=== PATIENT | female | born 1995 | race Hispanic/Latino ===

== ENCOUNTER 2019-02-10 19:01 | Emergency (ER) | payer SELFPAY ==
--- OUTSIDE RECORDS SUMMARY | 2019-02-10 19:03 | XMS REPORT ---
:1995 [facility] Address [address] [place] [address] Dr. Rush [address] [place] [address] Care Team Providers Name Role Phone Unavailable Unavailable Unavailable Problems This patient has no known problems. Allergies, Adverse Reactions, Alerts This patient has no known allergies or adverse reactions. Medications This patient has no known medications.
--- OUTSIDE RECORDS SUMMARY | 2019-02-10 19:04 | XMS REPORT | Summary of Care ---
:1995 Author Organization [facility] Address [address] [place] [address] Care Team Providers Name Role Phone Marlena Finch [facility] Primary Care Provider Reason for Visit Reason Comments Other refill on acyclovir 400mg last filled 10/08/18 Encounter Details Date Type Department Care Team Description 11/07/2018 Telephone [facility]- Marlena Finch Other (refill on Denis Kidd [facility] acyclovir 400mg last [address] filled 10/08/18) [facility] [address] [place], [place] [id number] Allergies Active Allergy Reactions Severity Noted Date Comments Latex Rash Medium 04/02/2018 documented as of this encounter (statuses as of 11/07/2018) Medications Medication Sig Dispensed Refills Start Date End Date Status ondansetron 4 mg Take 1 tablet by 20 tablet 0 05/11/2017 Active disintegrating tablet mouth every 4 (four) hours as needed for Nausea and Vomiting (N/V). HYDROcodone-acetaminoph Take 1 tablet by 20 tablet 0 05/14/2017 Active en 5-325 mg tablet mouth every 6 (six) hours as needed for Pain (scale 4-6) or Pain (scale 7-10). hydrOXYzine 25 mg Take 1 tablet by 28 tablet 0 03/18/2018 Active tablet mouth every 6 (six) hours. predniSONE 10 mg tablet 40 mg daily , 50 tablet 0 03/18/2018 Active days 1-5, 30 mg daily, days 6-10, 20 mg daily , days 11-15, 10 mg daily, days 16-20 acyclovir 400 mg tablet Take 400 mg by 0 Active mouth. acyclovir 400 mg Take 1 tablet by 15 tablet 0 11/07/2018 Active tabletIndications: mouth 3 (three) Herpes, vulvar times daily. documented as of this encounter (statuses as of 11/07/2018) Active Problems Problem Noted Date Well woman exam 04/02/2018 Contraceptive management 04/02/2018 Pilonidal cyst 05/14/2017 Obesity (BMI 30-39.9) 10/08/2016 Herpes 09/13/2016 documented as of this encounter (statuses as of 11/07/2018) Resolved Problems Problem Noted Date Resolved Date Vaginal bleeding in 10/08/2016 02/07/2017 Rubella non-immune status, antepartum 09/15/2016 02/07/2017 Abnormal maternal glucose tolerance, antepartum 09/14/2016 02/07/2017 Overview: passed 3hr glucose Supervision of high risk , antepartum 09/13/2016 02/07/2017 Well woman exam (no gynecological exam) 07/27/2016 09/13/2016 Encounter for other contraceptive management 07/27/2016 09/13/2016 Family planning counseling 07/27/2016 09/13/2016 Obesity affecting 07/27/2016 02/07/2017 Gonococcal infection (acute) of lower genitourinary tract 08/06/20152016 General counseling and advice for contraceptive management 11/11/20142016 Overview: ICD10 Diagnosis Term Digital Tech Utility Encounter for routine gynecological examination 11/11/2014 07/27/2016 Overview: ICD10 Diagnosis Term Digital Tech Utility Screen for STD (sexually transmitted disease) 11/11/2014 09/13/2016 Yeast infection of the vagina 11/11/2014 07/27/2016 Overweight 11/11/2014 07/27/2016 Overview: ICD10 Diagnosis Term Digital Tech Utility documented as of this encounter (statuses as of 11/07/2018) Immunizations Name Administration Dates Next Due Td 03/12/2007 documented as of this encounter Social History Tobacco Use Types Packs/Day Years Used Date Former Smoker Cigars Quit: 09/2017 Smokeless Tobacco: Never Used Alcohol Use Drinks/Week oz/Week Comments Yes 0 Standard drinks or equivalent 0.0 socially Sex Assigned at Date Recorded Not on file Job Start Date Occupation Industry Not on file Not on file Not on file Travel History Travel Start Travel End No recent travel history available. documented as of this encounter Last Filed Vital Signs Not on filedocumented in this encounter Plan of Treatment Date Type Specialty Care Team Description 04/02/2019 Office Visit [facility] [address] [place] [address] [phone] Health Maintenance Due Date Last Done Comments HPV VACCINES (1 - Female 2008 3-dose series) DTaP,Tdap,and Td Vaccines (2 2012 03/12/2007 - Tdap) INFLUENZA VACCINE (#1) 2018 PAP SMEAR 04/02/2021 04/02/2018, 11/11/2014 PNEUMOCOCCAL 0-64 YEARS Aged Out No longer eligible based COMBINED SERIES on patient's age to complete this topic documented as of this encounter Results Not on filedocumented in this encounter Visit Diagnoses Diagnosis Herpes, vulvar Herpetic ulceration of vulva documented in this encounter Insurance Payer Benefit Plan Subscriber ID Effective Phone Address Type / Group Dates [facility] xxxxxxxxx 2017-Dariel [phone] [address] Medicaid WOMEN nt [address] [place] [address] documented as of this encounter Advance Directives Name Relationship Healthcare Agent Communication Relationship Lily Duenas Mother Primary healthcare agent
[2019-02-10 19:40] LABS: Absolute Lymphocytes (CBC) 3.9 K/uL (0.7-4.9); Basophils % 0.8 % (0-1.3); Hematocrit 34.6 % (36.0-45.0); Lymphocytes % 40.1 % (15.3-44.8)
--- NOTE | 2019-02-10 19:54 | RAD REPORT ---
EXAM DESCRIPTION: RAD - Chest Single View - 02/10/2019 7:41 pm CLINICAL HISTORY: CHEST PAIN Chest pain. COMPARISON: <Comparisons> FINDINGS: Portable technique limits examination quality. The lungs are grossly clear. The heart is normal in size. No displaced fractures. IMPRESSION: No acute intrathoracic process suspected.
[2019-02-10 19:57] LABS: ALT/SGPT 34 U/L (12-78); AST/SGOT 19 U/L (15-37); Albumin 3.6 g/dL (3.4-5.0); Alkaline Phosphatase 108 U/L (45-117); BUN Blood Urea Nitrogen 16 mg/dL (7-18); Bicarbonate 29 mmol/L (21-32); Bilirubin Direct < 0.1 mg/dL (0-0.2); Glucose Level 89 mg/dL (74-106); Magnesium 2.3 mg/dL (1.8-2.4); NT PRO-BNP 17 pg/mL (<125); Potassium 4.1 mmol/L (3.5-5.1); Sodium Level 141 mmol/L (136-145); Troponin (Emerg Dept Use Only) < 0.02 ng/mL (0.0-0.045)
[2019-02-10 20:01] LABS: Bilirubin Total < 0.1 mg/dL (0.2-1.0)
[2019-02-10] MEDS ORDERED: KETOROLAC 30 MG/ML INJ ONE (20:17)
[2019-02-10 20:29] LABS: Barbiturates NEGATIVE (NEGATIVE); Benzodiazepines NEGATIVE (NEGATIVE); Cocaine NEGATIVE (NEGATIVE); METHAMPHETAM NEGATIVE (NEGATIVE); Methadone NEGATIVE (NEGATIVE); Opiates NEGATIVE (NEGATIVE); Phencyclidine NEGATIVE (NEGATIVE); THC Cannibis NEGATIVE (NEGATIVE)
--- NOTE | 2019-02-10 20:47 | EDPHYS ---
Physician Documentation [facility] Name: Marcela Duenas Age: 23 yrs Sex: Female : 1995 Arrival Date: 02/10/2019 Time: 19:03 Bed 25 Private MD: ED Physician Jey Reeves HPI: 02/11 06:08 This 23 yrs old Female presents to ER via Ambulatory with complaints of Chest tw4 Pain. 06:08 The patient or guardian reports chest pain that is located primarily in the anterior tw4 chest wall. The pain does not radiate. 06:08 Associated signs and symptoms: The patient has no apparent associated signs or tw4 symptoms. The chest pain is described as dull. Duration: The patient or guardian reports a single episode. Modifying factors: The symptoms are alleviated by nothing. the symptoms are aggravated by nothing. The patient has not experienced similar symptoms in the past. 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 - Social history:: Smoking status: Patient/guardian denies using tobacco. - Ebola Screening: : No symptoms or risks identified at this time. ROS: 02/11 06:08 Constitutional: Negative for fever, chills, and weight loss, Eyes: Negative for injury, tw4 pain, redness, and discharge, Respiratory: Negative for shortness of breath, cough, wheezing, and pleuritic chest pain, Abdomen/GI: Negative for abdominal pain, nausea, vomiting, diarrhea, and constipation. MS/Extremity: Negative for injury and deformity, Skin: Negative for injury, rash, and discoloration, Neuro: Negative for headache, weakness, numbness, tingling, and seizure. Cardiovascular: Positive for chest pain, Negative for edema, orthopnea, palpitations. Exam: 06:09 Constitutional: This is a well developed, well nourished patient who is awake, alert, tw4 and in no acute distress. Head/Face: Normocephalic, atraumatic. 06:09 Cardiovascular: Regular rate and rhythm with a normal S1 and S2. No gallops, murmurs, or rubs. Normal PMI, no JVD. No pulse deficits. Respiratory: Lungs have equal breath sounds bilaterally, clear to auscultation and percussion. No rales, rhonchi or wheezes noted. No increased work of breathing, no retractions or nasal flaring. Abdomen/GI: Soft, non-tender, with normal bowel sounds. No distension or tympany. No guarding or rebound. No evidence of tenderness throughout. Back: No spinal tenderness. No costovertebral tenderness. Full range of motion. MS/ Extremity: Pulses equal, no cyanosis. Neurovascular intact. Full, normal range of motion. Neuro: Awake and alert, GCS 15, oriented to person, place, time, and situation. Cranial nerves II-XII grossly intact. Motor strength 5/5 in all extremities. Sensory grossly intact. Cerebellar exam normal. Normal gait. 06:09 Chest/axilla: Inspection: normal, Palpation: tenderness, that is mild, that totally reproduces the patient's complaints. Vital Signs: 02/10 19:09 BP 115 / 78; Pulse 83; Resp 16 S; Temp 98.5(TE); Pulse Ox 99% on R/A; Weight 81.65 kg aa5 (R); Height 5 ft. 0 in. (152.40 cm) (R); Pain 8/10; 20:29 BP 106 / 69; Pulse 88; Resp 18; Pulse Ox 100% on R/A; mg2 21:00 BP 110 / 67; Pulse 80; Resp 18; Temp 98; Pulse Ox 100% on R/A; mg2 19:09 Body Mass Index 35.15 (81.65 kg, 152.40 cm) aa5 MDM: 19:11 Patient medically screened. tw4 02/11 06:09 Data reviewed: vital signs, nurses notes, lab test result(s), cardiac enzymes, troponin tw4 i, CBC, white blood cell count, hemoglobin, hematocrit, platelets, electrolytes, sodium, potassium, chloride, serum bicarbonate, BUN, creatinine, serum glucose, hepatic panel. Data interpreted: Pulse oximetry: Interpretation: normal. Counseling: I had a detailed discussion with the patient and/or guardian regarding: the historical points, exam findings, and any diagnostic results supporting the discharge/admit diagnosis. Medication response: Medication response: Toradol relieved patient's pain. The symptoms have resolved. Response to treatment: the patient's symptoms have resolved after treatment, and as a result, I will discharge patient. Special discussion: I discussed with the patient/guardian in detail that at this point there is no indication for admission to the hospital. It is understood, however, that if the symptoms persist or worsen the patient needs to return immediately for re-evaluation. 02/10 19:14 Order name: Basic Metabolic Panel [facility] 02/10 19:14 Order name: CBC with Diff tw 02/10 19:14 Order name: LFT's [facility] 02/10 19:14 Order name: Magnesium tw 02/10 19:14 Order name: NT PRO-BNP [facility] 02/10 19:14 Order name: PT-INR [facility] 02/10 19:14 Order name: Troponin (emerg Dept Use Only) [facility] 02/10 19:14 Order name: XRAY Chest (1 view) [facility] 02/10 19:16 Order name: Urine Drug Screen; Complete Time: 20:42 [facility] 02/10 20:16 Order name: Urine Dipstick--Ancillary (enter results) [facility] 02/10 20:16 Order name: Urine --Ancillary (enter results) [facility] 02/10 20:17 Order name: Urine Dipstick-Ancillary [facility] 02/10 20:17 Order name: Urine --Ancillary [facility] 02/10 19:14 Order name: EKG; Complete Time: 19:16 tw 02/10 19:14 Order name: Cardiac monitoring; Complete Time: 19:33 4 02/10 19:14 Order name: EKG - Nurse/Tech; Complete Time: 19:33 tw4 02/10 19:14 Order name: IV Saline Lock; Complete Time: 19:33 tw4 02/10 19:14 Order name: Labs collected and sent; Complete Time: 19:33 tw4 02/10 19:14 Order name: O2 Per Protocol; Complete Time: 19:33 tw4 02/10 19:14 Order name: O2 Sat Monitoring; Complete Time: 19:33 tw4 Administered Medications: 02/10 20:29 Drug: TORadol 30 mg Route: IVP; Site: left antecubital; mg2 21:15 Follow up: Response: No adverse reaction mg2 Disposition: 02/10/19 20:46 Discharged to Home. Impression: Costochondritis. - Condition is Stable. - Discharge Instructions: Chest Wall Pain, [id number]. - Prescriptions for Ibuprofen 600 mg Oral Tablet - take 1 tablet by ORAL route every 6 hours As needed take with food; 30 tablet. - Medication Reconciliation Form, Thank You Letter, Antibiotic Education, Prescription Opioid Use, Work release form form. - Follow up: Private Physician; When: Upon discharge from the Emergency Department; Reason: Recheck today's complaints, Continuance of care. - Problem is new. - Symptoms have improved. Signatures: Dispatcher [employer] EDMartina Little, RN RN aa5 Jey Reeves MD MD tw4 Azael Newton RN RN mg2 Corrections: (The following items were deleted from the chart) 21:22 20:46 02/10/2019 20:46 Discharged to Home. Impression: Costochondritis. Condition is mg2 Stable. Forms are Medication Reconciliation Form, Thank You Letter, Antibiotic Education, Prescription Opioid Use. Follow up: Private Physician; When: Upon discharge from the Emergency Department; Reason: Recheck today's complaints, Continuance of care. Problem is new. Symptoms have improved. tw4
--- NOTE | 2019-02-10 20:47 | ER ---
Nurse's Notes [facility] Name: Marcela Duenas Age: 23 yrs Sex: Female : 1995 Arrival Date: 02/10/2019 Time: 19:03 Bed 25 Private MD: Diagnosis: Costochondritis Presentation: 02/10 19:07 Presenting complaint: Patient states: mid-sternal chest pain that began 4 days ago. Pt aa5 denies cough, denies SOB. Transition of care: patient was not received from another setting of care. Onset of symptoms was January 2019. Risk Assessment: Do you want to hurt yourself or someone else? Patient reports no desire to harm self or others. Initial Sepsis Screen: Does the patient meet any 2 criteria? No. Patient's initial sepsis screen is negative. Does the patient have a suspected source of infection? No. Patient's initial sepsis screen is negative. Care prior to arrival: None. 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 - Social history:: Smoking status: Patient/guardian denies using tobacco. - Ebola Screening: : No symptoms or risks identified at this time. Screenin:34 Abuse screen: Denies threats or abuse. Denies injuries from another. Nutritional mg2 screening: No deficits noted. Tuberculosis screening: No symptoms or risk factors identified. Fall Risk IV access (20 points). Assessment: 19:35 General: Appears in no apparent distress. comfortable, Behavior is calm, cooperative. mg2 Pain: Complains of pain in chest Pain does not radiate. Pain currently is 4 out of 10 on a pain scale. Quality of pain is described as aching, Pain began gradually, 2-3 days ago. Is intermittent. Neuro: Level of Consciousness is awake, alert, obeys commands, Oriented to person, place, time, situation. Cardiovascular: Reports chest pain, Capillary refill < 3 seconds Patient's skin is warm and dry. Respiratory: Airway is patent Respiratory effort is even, unlabored, Respiratory pattern is regular, symmetrical. GI: No signs and/or symptoms were reported involving the gastrointestinal system. : No signs and/or symptoms were reported regarding the genitourinary system. EENT: No signs and/or symptoms were reported regarding the EENT system. Derm: Skin is intact, is healthy with good turgor, Skin is pink, warm \T\ dry. normal. Musculoskeletal: Circulation, motion, and sensation intact. Capillary refill < 3 seconds. 21:15 Reassessment: Patient appears in no apparent distress at this time. Patient is alert, mg2 oriented x 3, equal unlabored respirations, skin warm/dry/pink. Patient states feeling better. Vital Signs: 19:09 BP 115 / 78; Pulse 83; Resp 16 S; Temp 98.5(TE); Pulse Ox 99% on R/A; Weight 81.65 kg aa5 (R); Height 5 ft. 0 in. (152.40 cm) (R); Pain 8/10; 20:29 BP 106 / 69; Pulse 88; Resp 18; Pulse Ox 100% on R/A; mg2 21:00 BP 110 / 67; Pulse 80; Resp 18; Temp 98; Pulse Ox 100% on R/A; mg2 19:09 Body Mass Index 35.15 (81.65 kg, 152.40 cm) aa5 ED Course: 19:03 Patient arrived in ED. cl3 19:07 Arm band placed on. aa5 19:08 Triage completed. aa5 19:11 Jey Reeves MD is Attending Physician. tw4 19:12 Azael Newton, RN is Primary Nurse. mg2 19:25 Bed in low position. Call light in reach. Side rails up X 1. Adult w/ patient. Warm jp3 blanket given. Verbal reassurance given. court recording monitor on. Pulse ox on. NIBP on. 19:25 Patient maintains SpO2 saturation greater than 95% on room air. jp3 19:35 No provider procedures requiring assistance completed. Inserted saline lock: 20 gauge mg2 in left antecubital area, using aseptic technique. Blood collected. 19:45 XRAY Chest (1 view) In Process Unspecified. EDMS 21:15 IV discontinued, intact, bleeding controlled, No redness/swelling at site. Pressure mg2 dressing applied. Administered Medications: 20:29 Drug: TORadol 30 mg Route: IVP; Site: left antecubital; mg2 21:15 Follow up: Response: No adverse reaction mg2 Outcome: 20:46 Discharge ordered by . demetris 21:20 Discharged to home ambulatory, with family. mg2 21:20 Condition: stable 21:20 Discharge instructions given to patient, family, Instructed on discharge instructions, follow up and referral plans. medication usage, Demonstrated understanding of instructions, follow-up care, medications, Prescriptions given X 1. 21:22 Patient left the ED. mg2 Signatures: Dispatcher [employer] EDMartina Little, RN RN aa5 Jey Reeves MD MD tw4 Azael Newton RN RN mg2 Donny Camejo jp3 Magdalene Ruiz cl3
[2019-02-10 21:22] LABS: Urine Blood TRACE (NEG); Urine Glucose NEGATIVE (NEG); Urine Protein NEGATIVE (NEG); Urine Specific Gravity 1.025 (1.005-1.030); Urine pH 6.5 (5.0-7.0)
[2019-02-11 02:16] VITALS: TEMP 98.5
[2019-02-11 02:20] VITALS: BP 106/69; O2SAT 100
--- NOTE | 2019-02-11 08:02 | EKG ---
Test Date: 2019-02-10 Test Time: 19:35:38 Junior Net Developer: YAJAIRA MEASUREMENT RESULTS: Intervals: Rate: 83 MN: 162 QRSD: 84 QT: 364 QTc: 427 [place]: P: 7 MN: 162 QRS: 62 T: 60 INTERPRETIVE STATEMENTS: Normal sinus rhythm Normal ECG No previous ECG available for comparison Electronically Signed On 02-11-19 08:01:05 ELECTRONIC MAINTENANCE SUPERVISOR by Sherif Vaughan
== END 2019-02-10 21:22 | disposition home or self-care (01) ==
LOC: ER 19:01
DX: M94.0 Chondrocostal junction syndrome [Tietze] (principal)
CPT/HCPCS: 36415; 71045; 80048; 80076; 80307; 81003; 81025; 83735; 83880; 84484; 85025; 85610; 93005; 96374; 99285

== ENCOUNTER 2019-07-08 11:22 | Emergency (ER) | payer SELFPAY ==
--- OUTSIDE RECORDS SUMMARY | 2019-07-08 12:01 | XMS REPORT ---
:1995 Author Organization [facility] t Address [address] [place] [address] Dr. Rush [address] [place] [address] Care Team Providers Name Role Phone Unavailable Unavailable Unavailable Problems This patient has no known problems. Allergies, Adverse Reactions, Alerts This patient has no known allergies or adverse reactions. Medications This patient has no known medications.
--- OUTSIDE RECORDS SUMMARY | 2019-07-08 12:02 | XMS REPORT | Summary of Care ---
:1995 Author Organization [facility] Address [address] [place] [address] Care Team Providers Name Role Phone [facility] [phone] Encounter Details Date Type Department Care Team Description 04/18/2019 Orders Only [facility] Doctor Unassigned, No [address] [facility] [place] [address] [address] [place] [id number] Allergies Active Allergy Reactions Severity Noted Date Comments Latex Rash Medium 04/02/2018 documented as of this encounter (statuses as of 04/18/2019) Medications Medication Sig Dispensed Refills Start Date End Date Status ondansetron 4 mg Take 1 tablet by 20 tablet 0 05/11/2017 Active disintegrating tablet mouth every 4 (four) hours as needed for Nausea and Vomiting (N/V). HYDROcodone-acetaminoph Take 1 tablet by 20 tablet 0 8 Active en 5-325 mg tablet mouth every [...] Take 1 tablet by 15 tablet 0 12/12/2018 Active tabletIndications: mouth 3 (three) Herpes, vulvar times daily. documented as of this encounter (statuses as of 04/18/2019) Active Problems Problem Noted Date Well woman exam 04/02/2018 Contraceptive management 04/02/2018 Pilonidal cyst 05/14/2017 Obesity (BMI 30-39.9) 10/08/2016 Herpes 09/13/2016 documented as of this encounter (statuses as of 04/18/2019) Resolved Problems Problem Noted Date Resolved Date Vaginal bleeding in 10/08/2016 02/07/2017 Rubella non-immune status, antepartum 09/15/2016 Abnormal maternal glucose tolerance, antepartum 09/14/2016 02/07/2017 Overview: passed 3hr glucose Supervision of high risk , antepartum 09/13/2016 02/07/2017 Well woman exam (no gynecological exam) 07/27/2016 09/13/2016 Encounter for other contraceptive management 07/27/2016 09/13/2016 Family planning counseling 07/27/2016 09/13/2016 Obesity affecting 07/27/2016 02/07/2017 Gonococcal infection (acute) of lower genitourinary tract 07/27/2016 General counseling and advice for contraceptive management 0 11/11/2014 07/27/2016 Overview: ICD10 Diagnosis Term Sales And Operations Trainee Utility Encounter for routine gynecological examination 11/11/2014 07/27/2016 Overview: ICD10 Diagnosis Term Sales And Operations Trainee Utility Screen for STD (sexually transmitted disease) 11/11/2014 09/13/2016 Yeast infection of the vagina 11/11/2014 07/27/2016 Overweight 11/11/2014 07/27/2016 Overview: ICD10 Diagnosis Term Sales And Operations Trainee Utility documented as of this encounter (statuses as of 04/18/2019) Immunizations Name Administration Dates Next Due Td [...] filedocumented in this encounter Plan of Treatment Health Maintenance Due Date Last Done Comments DTaP,Tdap,and Td Vaccines (2 2004 03/12/2007 - Tdap) HPV VACCINES (1 - Female 2004 2-dose series) INFLUENZA VACCINE (#1) 2018 PAP SMEAR 04/02/2021 04/02/2018, 11/11/2014 PNEUMOCOCCAL 0-64 YEARS Aged Out No longe r eligible based COMBINED SERIES on patient's age to complete [facility] documented as of this encounter Procedures Procedure Name Priority Date/Time Associated Diagnosis Comme nts CONSENT/REFUSAL FOR Routine 04/18/2019 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
--- OUTSIDE RECORDS SUMMARY | 2019-07-08 12:02 | XMS REPORT | Summary of Care ---
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 HYDROcodone-acetaminop Take 1 tablet by 20 tablet 0 05/14/2017 Active hen 5-325 mg tablet mouth every 6 (six) hours as needed for Pain (scale 4-6) or Pain (scale 7-10). hydrOXYzine 25 mg Take 1 tablet by 28 tablet 0 03/18/2018 Active tablet mouth every 6 (six) hours. predniSONE 10 mg 40 mg daily , 50 tablet 0 03/18/2018 Active tablet days 1-5, 30 mg daily, days 6-10, 20 mg daily , days 11-15, 10 mg daily, days 16-20 acyclovir 400 mg Take 400 mg by 0 Active tablet mouth. acyclovir 400 mg Take 1 tablet by 15 tablet 0 12/12/2018 Active tabletIndications: mouth 3 (three) Herpes, vulvar times daily. butalbital-acetaminoph Take 1 tablet by 20 tablet 0 04/18/2019 04/23/2019 Active en-caff 50-325-40 mg mouth every 6 tabletIndications: (six) hours as Acute intractable needed for Pain headache, unspecified (scale 7-10) for headache type up to 5 days. documented as of this encounter (statuses as [...] 0 11/11/2014 07/27/2016 Overview: ICD10 Diagnosis Term Numerical Control Router Operator Utility Encounter for routine gynecological examination 11/11/2014 07/27/2016 Overview: ICD10 Diagnosis Term Numerical Control Router Operator Utility Screen for STD (sexually transmitted disease) 11/11/2014 09/13/2016 Yeast infection of the vagina 11/11/2014 07/27/2016 Overweight 11/11/2014 07/27/2016 Overview: ICD10 Diagnosis Term Numerical Control Router Operator Utility documented as of this encounter (statuses [...] of this encounter Last Filed Vital Signs Vital Sign Reading Time Taken Comments Blood Pressure 116/78 04/18/2019 8:24 PM BRISKET PULLER Pulse 73 04/18/2019 8:24 PM BRISKET PULLER Temperature 36.7 C (98 F) 04/18/2019 8:24 PM BRISKET PULLER Respiratory Rate 16 04/18/2019 8:24 PM BRISKET PULLER Oxygen Saturation 100% 04/18/2019 8:24 PM BRISKET PULLER Inhaled Oxygen Concentration - - Weight 84 kg (185 lb 3.2 oz) 04/18/2019 8:24 PM BRISKET PULLER Height 152.4 cm (5') 04/18/2019 8:24 PM BRISKET PULLER Body Mass Index 36.17 04/18/2019 8:24 PM BRISKET PULLER documented in this encounter Discharge Instructions Liz Godwin, TOBI - 04/18/2019DIAGNOSIS 1. Headache, resolving NO LIFE-THREATENING FINDINGS ON TODAY'S EXAM. PROCEDURES IN THE ER TODAY: Labs MEDICATIONS ADMINISTERED IN THE ER TODAY: Toradol IM YOUR PRESCRIPTIONS AND [id number] MEDICATION RECOMMENDATIONS: Esgic FOLLOW-UP RECOMMENDATIONS: RECOMMEND FOLLOW-UP WITH A PRIMARY CARE PROVIDER OR SPECIALIST IN 2-5 DAYS, ESPECIALLY IF NO IMPROVEMENT IN SYMPTOMS. TO FOLLOW-UP WITHIN THE [facility], TRY THESE OPTIONS (CLINIC APPOINTMENTS AVAILABLE ON [id number] BASIS): 1. SCHEDULE AN APPOINTMENT ONLINE AT [email or web address] 2. OR CALL THE [facility] AT OR 3. OR CALL YOUR [facility] PHYSICIAN'S OFFICE DIRECTLY IF YOU ARE ALREADY AN ESTABLISHED [facility] PATIENT. OR, YOU MAY FOLLOW-UP WITH A PROVIDER OF YOUR CHOICE, SUCH : 1. A PHYSICIAN OF YOUR CHOICE 2. [facility], . LOCATIONS IN [facility] 3. [facility], [address], [place]; [phone] RETURN TO ER FOR WORSENING OF SYMPTOMS. Please follow up with your PCP in 1 week for reevaluation of symptoms Come back to the ER if you have worsening fevers over 100.4 F not controlled by tylenol or motrin, cannot tolerate fluids/ food, have not urinated in > 8 hours. AttachmentsThe following attachments cannot be sent through Care Everywhere. Headaches, Self-Care for (Sammarinese)Headache, Unspecified (Sammarinese)documented in this encounter Plan of Treatment Health Maintenance Due Date Last Done Comments DTaP,Tdap,and Td Vaccines (2 2004 03/12/2007 - Tdap) HPV VACCINES (1 - Female 2004 2-dose series) INFLUENZA VACCINE (#1) 2018 PAP SMEAR 04/02/2021 04/02/2018, 11/11/2014 PNEUMOCOCCAL 0-64 YEARS Aged Out No longe r eligible based COMBINED SERIES on patient's age to complete this to [facility] documented as of this encounter Procedures Procedure Name Priority Date/Time Associated Diagnosis Comme nts POCT TEST [facility] 04/18/2019 8:45 PM Acute intracta ble Results for this BRISKET PULLER headache, procedure are i n unspecified headache the res ults type section. documented in this encounter Results POCT TEST (04/18/2019 8:45 PM BRISKET PULLER) Pathologist Sig nature POCT PREG negative On board controls acceptable present with C Line POCT PREG LOT # [id number] POCT PREG TEST DATE 10/09/2020 Specimen Urine - URINE, CLEAN CATCH documented in this encounter Visit Diagnoses Diagnosis Acute intractable headache, unspecified headache type - Primary documented in this encounter Administered Medications Medication Order MAR Action Action Date Dose Rate Site ketorolac (TORADOL) Given 04/18/2019 8:58 PM 30 mg Right Deltoid-IM injection 30 mg BRISKET PULLER 30 mg, Intramuscular, ONCE, 1 dose, Sun04/18/19 at 2200, [facility], burn crew member approving Restricted medication: MELQUIADES KELLEY documented in this encounter Advance Directives Name Relationship Healthcare Agent Communication Relationship Lily Duenas Mother Primary healthcare agent
--- OUTSIDE RECORDS SUMMARY | 2019-07-08 12:02 | XMS REPORT | Summary of Care ---
:1995 Author Organization [facility] Address [address] [place] [address] Care Team Providers Name Role Phone Marlena Finch Primary Care Provider [phone] Reason for Visit Reason Comments Refill Request acyclovir 400 mg tablet Encounter Details Date Type Department Care Team Description 04/17/2019 Telephone [facility]- Marlena Finch Ref ill Request KEI Velasquez (acyclovir 400 mg [address] tablet) [facility] A [address] [place], [place] [id number] Allergies Active Allergy Reactions Severity Noted Date [...] 0 11/11/2014 07/27/2016 Overview: ICD10 Diagnosis Term Full Service Supervisor Utility Encounter for routine gynecological examination 11/11/2014 07/27/2016 Overview: ICD10 Diagnosis Term Full Service Supervisor Utility Screen for STD (sexually transmitted disease) 11/11/2014 09/13/2016 Yeast infection of the vagina 11/11/2014 07/27/2016 Overweight 11/11/2014 07/27/2016 Overview: ICD10 Diagnosis Term Full Service Supervisor Utility documented as of this encounter (statuses [...] on patient's age to complete this to [facility] documented as of this encounter Results Not on filedocumented in this encounter Insurance Payer Benefit Plan Subscriber ID Effective Phone Address Typ e / Group Dates [facility] [place] [id number] xxxxxxxxx 2017-Prese [phone] Medicaid WOMEN nt [address] [place] [address] documented as of this encounter Advance Directives Name Relationship Healthcare Agent Communication Relationship Lily Duenas Mother Primary healthcare agent
[2019-07-08] MEDS ORDERED: KETOROLAC 30 MG/ML INJ ONE (12:21)
--- NOTE | 2019-07-08 13:22 | RAD REPORT ---
EXAM DESCRIPTION: RAD - Foot Right 3 View - 07/08/2019 1:01 pm CLINICAL HISTORY: Right foot pain status post injury FINDINGS: A transverse lucency is present within the base of the fifth metatarsal seen only on one v iew. Most likely it represents prominent trabecula. Nondisplaced fracture can have this appearance an d should be correlated clinically. No dislocation.
--- NOTE | 2019-07-08 13:37 | EDPHYS ---
Physician Documentation [facility] Name: Marcela Duenas Age: 24 yrs Sex: Female : 1995 Arrival Date: 07/08/2019 Time: 11:25 Bed 17 Private MD: ED Physician Bradley George HPI: 07/07 12:34 This 24 yrs old Female presents to ER via Wheelchair with complaints of Leg jr8 Pain, Leg Swelling. 12:34 The patient presents with decreased range of motion, pain, swelling, tenderness, jr8 bruising . The complaints affect the lateral aspect of right foot. Context: The problem was sustained at home, resulted from twisting of the extremity, the patient is not able to bear weight. Onset: The symptoms/episode began/occurred acutely, today. Modifying factors: The symptoms are alleviated by nothing. the symptoms are aggravated by movement, weight bearing. Associated signs and symptoms: The patient has no apparent associated signs or symptoms. Severity of symptoms: At their worst the symptoms were moderate, in the emergency department the symptoms are unchanged. The patient has not experienced similar symptoms in the past. The patient has not recently seen a physician. 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 - Social history:: Smoking status: . ROS: 12:34 Eyes: Negative for injury, pain, redness, and discharge, ENT: Negative for injury, jr8 pain, and discharge, Neck: Negative for injury, pain, and swelling, Cardiovascular: Negative for chest pain, palpitations, and edema, Respiratory: Negative for shortness of breath, cough, wheezing, and pleuritic chest pain, Abdomen/GI: Negative for abdominal pain, nausea, vomiting, diarrhea, and constipation, Back: Negative for injury and pain, Skin: Negative for injury, rash, and discoloration, Neuro: Negative for headache, weakness, numbness, tingling, and seizure. 12:34 MS/extremity: Positive for decreased range of motion, ecchymosis, pain, swelling, tenderness, of the lateral aspect of right foot. Exam: 12:34 Eyes: Pupils equal round and reactive to light, extra-ocular motions intact. Lids and jr8 lashes normal. Conjunctiva and sclera are non-icteric and not injected. Cornea within normal limits. Periorbital areas with no swelling, redness, or edema. ENT: Nares patent. No nasal discharge, no septal abnormalities noted. Tympanic membranes are normal and external auditory canals are clear. Oropharynx with no redness, swelling, or masses, exudates, or evidence of obstruction, uvula midline. Mucous membranes moist. Neck: Trachea midline, no thyromegaly or masses palpated, and no cervical lymphadenopathy. Supple, full range of motion without nuchal rigidity, or vertebral point tenderness. No Meningismus. Cardiovascular: Regular rate and rhythm with a normal S1 and S2. No gallops, murmurs, or rubs. Normal PMI, no JVD. No pulse deficits. Respiratory: Lungs have equal breath sounds bilaterally, clear to auscultation and percussion. No rales, rhonchi or wheezes noted. No increased work of breathing, no retractions or nasal flaring. Abdomen/GI: Soft, non-tender, with normal bowel sounds. No distension or tympany. No guarding or rebound. No evidence of tenderness throughout. Back: No spinal tenderness. No costovertebral tenderness. Full range of motion. Skin: Warm, dry with normal turgor. Normal color with no rashes, no lesions, and no evidence of cellulitis. Neuro: Awake and alert, GCS 15, oriented to person, place, time, and situation. Cranial nerves II-XII grossly intact. Motor strength 5/5 in all extremities. Sensory grossly intact. Cerebellar exam normal. Normal gait. 12:34 Musculoskeletal/extremity: Extremities: grossly normal except: noted in the lateral aspect of right foot: area of swelling and bruising noted over the metatarsals of the 3rd-5th digits. Tenderness to palpation. Pain with ROM. Can move toes well and with normal sensation and 2+ pedal pulses. No other trauma noted. No deformity noted , Rest of extremities unremarkable . Vital Signs: 11:35 BP 106 / 65; Pulse 77; Resp 16; Temp 98.2; Pulse Ox 99% on R/A; Weight 81.65 kg; Height iw 5 ft. 0 in. (152.40 cm); Pain 10/10; 12:54 BP 108 / 72; Pulse 70; Resp 16; Pulse Ox 100% ; bp 14:30 BP 107 / 75; Pulse 73; Resp 16; Pulse Ox 99% ; bp 11:35 Body Mass Index 35.15 (81.65 kg, 152.40 cm) iw Procedures: 13:34 Splinting: Splint applied to lateral aspect of right foot using Orthoglass splint, jr8 applied by tech. nurse. Examined by me, post splint application: neurovascular intact, 2+ distal pulses palpable, brisk capillary refill noted, Patient tolerated well. Crutch training provided to patient and/or family. Return demonstration given. MDM: 12:07 Patient medically screened. jr8 13:34 Data reviewed: vital signs, nurses notes, radiologic studies, plain films. Data jr8 interpreted: Pulse oximetry: on room air is 100 %. Interpretation: normal. Counseling: I had a detailed discussion with the patient and/or guardian regarding: the historical points, exam findings, and any diagnostic results supporting the discharge/admit diagnosis, radiology results, the need for outpatient follow up, a orthopedic surgeon, to return to the emergency department if symptoms worsen or persist or if there are any questions or concerns that arise at home. 07/07 11:38 Order name: Foot Right 3 View XRAY; Complete Time: 13:34 iw 07/07 13:34 Order name: Short Leg Splint; Complete Time: 14:21 jr8 07/07 13:34 Order name: Crutches; Complete Time: 14:21 jr8 Administered Medications: 12:10 Drug: TORadol - Ketorolac 15 mg Route: IM; Site: right deltoid; bp 13:30 Follow up: Response: Pain is decreased bp Disposition: 15:23 Co-signature as Attending Physician, Bradley George MD. rn Disposition: 07/08/19 13:36 Discharged to Home. Impression: Nondisplaced fracture of fifth metatarsal bone, right foot. - Condition is Stable. - Discharge Instructions: Metatarsal Fracture. - Prescriptions for Ibuprofen 800 mg Oral Tablet - take 1 tablet by ORAL route every 12 hours As needed take with food; 20 tablet. - Medication Reconciliation Form, Thank You Letter, Antibiotic Education, Prescription Opioid Use, Work release form form. - Follow up: Geremias Bobo MD; When: 1 week; Reason: Recheck today's complaints, Continuance of care, Re-evaluation by your physician. - Problem is new. - Symptoms have improved. Signatures: Dispatcher [employer] Tamiko Marsh, ALFREDO RN Bradley Laughlin MD MD rn Roszak, Josh, KOBE BULLOCK jr8 Devon Roberts RN RN bp Corrections: (The following items were deleted from the chart) 14:32 13:36 07/08/2019 13:36 Discharged to Home. Impression: Nondisplaced fracture of fifth bp metatarsal bone, right foot. Condition is Stable. Forms are Medication Reconciliation Form, Thank You Letter, Antibiotic Education, Prescription Opioid Use. Follow up: Geremias Bobo; When: 1 week; Reason: Recheck today's complaints, Continuance of care, Re-evaluation by your physician. Problem is new. Symptoms have improved. jr8
--- NOTE | 2019-07-08 13:37 | ER ---
Nurse's Notes [facility] Name: Marcela Duenas Age: 24 yrs Sex: Female : 1995 Arrival Date: 07/08/2019 Time: 11:25 Bed 17 Private MD: Diagnosis: Nondisplaced fracture of fifth metatarsal bone, right foot Presentation: 07/07 11:35 Chief complaint: Patient states: tripped and fell last night, rolled right ankle, has iw had pain and swelling to right foot since then. Coronavirus screen: Proceed with normal triage. Patient denies a cough. Patient denies shortness of breath or difficulty breathing. Patient denies measured and/or subjective temperature greater than 100.4F prior to today's visit. Patient denies travel on a cruise ship or to a country the [facility] currently lists as an affected area. Patient denies contact with known and/or suspected case of COVID-19. Ebola Screen: Patient negative for fever greater than or equal to 101.5 degrees Fahrenheit, and additional compatible Ebola Virus Disease symptoms Patient denies exposure to infectious person. Patient denies travel to an Ebola-affected area in the 21 days before illness onset. No symptoms or risks identified at this time. Initial Sepsis Screen: Does the patient meet any 2 criteria? No. Patient's initial sepsis screen is negative. Does the patient have a suspected source of infection? No. Patient's initial sepsis screen is negative. Risk Assessment: Do you want to hurt yourself or someone else? Patient reports no desire to harm self or others. Onset of symptoms was July 07, 2019. 11:35 Method Of Arrival: Wheelchair iw 11:35 Acuity: ZAFAR 4 iw Triage Assessment: 12:00 General: Appears in no apparent distress. comfortable, obese, Behavior is calm, bp cooperative, appropriate for age. Pain: Complains of pain in lateral aspect of right foot. EENT: No deficits noted. Neuro: No deficits noted. Cardiovascular: No deficits noted. Respiratory: No deficits noted. GI: No signs and/or symptoms were reported involving the gastrointestinal system. : No signs and/or symptoms were reported regarding the genitourinary system. Derm: No deficits noted. Musculoskeletal: Swelling present in lateral aspect of right foot. 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 - Social history:: Smoking status: . Screenin:00 Abuse screen: Denies threats or abuse. Denies injuries from another. Nutritional bp screening: No deficits noted. Tuberculosis screening: No symptoms or risk factors identified. Fall Risk None identified. Assessment: 12:00 General: SEE TRIAGE NOTE. bp 12:53 Reassessment: XRAY AT B/S Patient states feeling better. bp 14:30 Reassessment: PT D/C HOME VIA W/C, DX WITH R FIFTH METATARSAL FX. bp Vital Signs: 11:35 BP 106 / 65; Pulse 77; Resp 16; Temp 98.2; Pulse Ox 99% on R/A; Weight 81.65 kg; Height iw 5 ft. 0 in. (152.40 cm); Pain 10/10; 12:54 BP 108 / 72; Pulse 70; Resp 16; Pulse Ox 100% ; bp 14:30 BP 107 / 75; Pulse 73; Resp 16; Pulse Ox 99% ; bp 11:35 Body Mass Index 35.15 (81.65 kg, 152.40 cm) iw ED Course: 11:25 Patient arrived in ED. as 11:37 Triage completed. iw 11:37 Arm band placed on. iw 11:59 Pacheco Starr PA is PHCP. jr8 11:59 Bradley George MD is Attending Physician. jr8 12:00 Patient has correct armband on for positive identification. Bed in low position. Call bp light in reach. Side rails up X2. 12:04 Devon Roberts, RN is Primary Nurse. bp 12:51 Foot Right 3 View XRAY Sent. bp 13:00 No provider procedures requiring assistance completed. Patient did not have IV access bp during this emergency room visit. 13:01 Foot Right 3 View XRAY In Process Unspecified. EDMS 13:36 Geremias Bobo MD is Referral Physician. jr8 14:13 Crutch training done. Orthoglass splint: Posterior short lleg splint applied on right bp leg. Administered Medications: 12:10 Drug: TORadol - Ketorolac 15 mg Route: IM; Site: right deltoid; bp 13:30 Follow up: Response: Pain is decreased bp Outcome: 13:36 Discharge ordered by MD. ponce 14:31 Discharged to home via wheelchair. bp 14:31 Condition: stable 14:31 Discharge instructions given to patient, Instructed on discharge instructions, follow up and referral plans. medication usage, crutch walking, Demonstrated understanding of instructions, follow-up care, medications, crutch walking, splint care, Prescriptions given X 1. 14:32 Patient left the ED. bp Signatures: Dispatcher [employer] EDMS Cynthia Velaqzuez Irene, RN RN iw Pacheco Starr PA PA jr8 Devon Roberts RN RN bp Corrections: (The following items were deleted from the chart) 11:38 11:35 Chief complaint: Patient states: tripped and fell last night, rolled right ankle, iw has had pain and swelling since then iw
[2019-07-08 14:38] VITALS: TEMP 98.2
[2019-07-08 14:45] VITALS: BP 107/75; O2SAT 99
== END 2019-07-08 14:32 | disposition home or self-care (01) ==
LOC: ER 11:22
PROC: 2W3QX1Z Immobilization of Right Lower Leg using Splint (ICD-10-PCS; principal; 2019-07-08)
DX: S92.354A Nondisplaced fracture of fifth metatarsal bone, right foot, initial encounter for closed fracture (principal); X50.1XXA Overexertion from prolonged static or awkward postures, initial encounter; Y93.9 Activity, unspecified; Y92.009 Unspecified place in unspecified non-institutional (private) residence as the place of occurrence of the external cause
CPT/HCPCS: 96372; 99284

== ENCOUNTER 2021-11-07 15:30 | Emergency (ER) | payer SELFPAY ==
--- OUTSIDE RECORDS SUMMARY | 2021-11-07 15:33 | XMS REPORT | Continuity of Care Document ---
:1995 Author Organization [facility] t Address [facility] [place] [address] Care Team Providers Name Role Phone PCP, NO Primary Care Physician Unavailable BRODY JOHNSON Attending Clinician Unavailable SELVIN MEJIA Attending Clinician Unavailable Problems This patient has no known problems. Allergies, Adverse Reactions, Alerts Allergy Allergy Status Severity Reaction(s) Onset Inactive Treating Comm ents Source Name Type Date Date Clinician LATEX DRUG Active Med Rash 2018-0 [facility] INGREDI 04-02 ity of 00:00: [address] Social History Social Habit Start Date Stop Date Quantity Comments Source History of tobacco [facility] Health use Sex Assigned At [birth year] Female [facility] 00:00:00 00:00:00 Smoking Status Start Date Stop Date Source Never smoked tobacco (finding) C [facility] [employer] Medications Ordered Filled Start Stop Current Ordering Indication Dosage Frequency Signature Comments Components Source Medication Medication Date Date Medication? Clinician (SIG) Name Name Triamcinolo 2020-03 No 1 Three IRA TU ne 1-22 Times A S Acetonide 12:27: [facility] (Kenalog 00 0.1% Cream) 1 Applic/Gm CR Famotidine 2020-03 No 20mg Twice A CHRI CYNTHIA (Pepcid) 20 1-22 Day S Mg TAB 12:27: Health 00 Prednisone 2020-03 No 60mg Daily AISHA U (Deltasone) -22 S 20 Mg TAB 12:27: Health 00 Diphenhydra 2020-03 No 50mg Every 6 CHR ISTU mine Hcl 1-22 Hours S (Benadryl) 12:25: Health 50 Mg CAP 00 Vital Signs Vital Name Observation Time Observation Value Comments Source BP Diastolic 2021-01-31 13:02:00 79 mm[Hg] [facility] [employer] BP Systolic 2021-01-31 13:02:00 126 mm[Hg] [facility] [employer] Heart Rate 2021-01-31 13:02:00 86 /min [facility] [employer] Respiratory rate 2021-01-31 13:02:00 12 /min [facility] [employer] Body Temperature 2021-01-31 13:02:00 98.1 [degF] [facility] [employer] BP Diastolic 2021-01-31 12:23:00 79 mm[Hg] [facility] [employer] BP Systolic 2021-01-31 12:23:00 126 mm[Hg] [facility] [employer] Heart Rate 2021-01-31 12:23:00 86 /min [facility] [employer] Respiratory rate 2021-01-31 12:23:00 12 /min [facility] [employer] Body Temperature 2021-01-31 12:23:00 98.1 [degF] [facility] [employer] Procedures This patient has no known procedures. Encounters Start End Encounter Admission Attending Care Care Encounter Source Date/Time Date/Time Type Type Clinicians Facility Department ID 2021-01-31 Outpatient PING PING [id number] CH[facility] 12:47:23 -[id number] [facility] 2021-01-31 2021-01-31 Emergency ER PING JOHNSON [id number] [facility] 12:07:00 13:03:00 BRODY [id number] [facility] 2021-01-31 2021-01-31 Departed AISHAPATRICIA PING [id number] [facility] 12:07:00 13:03:00 Emergency [facility] 2019-09-16 2019-09-16 Outpatient R [facility] [id number] Univers 17:40:00 17:40:00 Olga [facility] 2019-09-16 2019-09-16 Outpatient R ROBERTO [facility] [id number] [facility] 17:40:00 17:40:00 SELVIN [facility] Results Test Description Test Time Test Comments Results Result Comments Source HCG ur detection 2021-01-31 12:25:00 Test Item Value Reference Range Interpretation Comme nts Urine Test (test code = 2106-3) Negative Negative [facility]
[2021-11-07] MEDS ORDERED: ACETAMINOPHEN 500 MG TAB ONE (16:21)
[2021-11-07] MEDS ORDERED: ONDANSETRON 4 MG (ODT) TAB ONE (16:21)
--- NOTE | 2021-11-07 17:40 | ER ---
Nurse's Notes [facility] Name: Marcela Duenas Age: 26 yrs Sex: Female : 1995 Arrival Date: 11/07/2021 Time: 15:32 Bed 10 Private MD: Diagnosis: Acute tonsillitis, unspecified Presentation: 11/07 15:59 Chief complaint: Patient states: sore throat, body aches, fever, clayton ear pain, aa5 diarrhea, and vomiting that began Sunday. Coronavirus screen: fever, muscle pain, sore throat. Ebola Screen: Patient denies travel to an Ebola-affected area in the 21 days before illness onset. Initial Sepsis Screen: Does the patient meet any 2 criteria? Temp <36.0*C (96.8*F)) or > 38.3*C (100.9*F). HR > 90 bpm. Does the patient have a suspected source of infection? Yes:. Risk Assessment: Do you want to hurt yourself or someone else? Patient reports no desire to harm self or others. Onset of symptoms was October 2021. 15:59 Acuity: ZAFAR 4 aa5 15:59 Method Of Arrival: Ambulatory aa5 Triage Assessment: 16:00 General: Appears in no apparent distress. uncomfortable, Behavior is calm, cooperative. 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 - Social history:: Smoking status: Patient denies any tobacco usage or history of. Screenin:10 Abuse screen: Denies threats or abuse. Denies injuries from another. Nutritional kb3 screening: No deficits noted. Tuberculosis screening: No symptoms or risk factors identified. Fall Risk None identified. Assessment: 14:10 General: Received care of pt from triage AAO x4. Pt reports sore throat that began kb3 Sunday night with fever, ear pressure and nausea that began yesterday. Tonsils are red, edematous with exudate bilaterally. 14:10 Pain: Complains of pain in neck Pain does not radiate. Pain currently is 8 out of 10 on kb3 a pain scale. Quality of pain is described as burning, sharp, stabbing, Pain began 2-3 days ago. Is continuous. Vital Signs: 15:59 BP 115 / 67; Pulse 115; Resp 22 S; Temp 103.1(O); Pulse Ox 97% on R/A; Weight 95.25 kg aa5 (R); Height 5 ft. 1 in. (154.94 cm) (R); 17:45 BP 117 / 78; Pulse 90; Resp 20; Temp 99.3; Pulse Ox 99% ; Pain 4/10; kb3 15:59 Body Mass Index 39.68 (95.25 kg, 154.94 cm) aa5 ED Course: 14:10 Patient has correct armband on for positive identification. kb3 14:10 No provider procedures requiring assistance completed. kb3 15:32 Patient arrived in ED. as 15:35 Nitin Linares PA is PHCP. cp 15:35 Bradley George MD is Attending Physician. cp 15:58 Arm band placed on. aa5 16:00 Triage completed. aa5 16:06 Noelle Shetty, RN is Primary Nurse. kb3 16:27 COVID-19 SARS RT PCR (Document "Date of Onset" if Symptomatic) Sent. kb3 16:27 Influenza Screen (a \\T\\ B) Sent. kb3 16:27 Strep Sent. kb3 17:58 Patient did not have IV access during this emergency room visit. kb3 Administered Medications: 16:22 Drug: Acetaminophen 1000 mg Route: PO; kb3 17:00 Follow up: Response: No adverse reaction kb3 16:22 Drug: Zofran (Ondansetron) 4 mg Route: PO; kb3 17:00 Follow up: Response: No adverse reaction kb3 17:45 Drug: Ibuprofen 800 mg Route: PO; kb3 17:56 Follow up: Response: No adverse reaction kb3 17:45 Drug: Decadron (dexamethasone) 10 mg Route: IM; Site: left ventrogluteal; kb3 17:56 Follow up: Response: No adverse reaction kb3 17:55 Drug: Rocephin (cefTRIAXone) 1 grams Route: IM; Site: right ventrogluteal; kb3 17:56 Follow up: Response: No adverse reaction kb3 Medication: 14:10 VIS not applicable for this client. kb3 Outcome: 17:40 Discharge ordered by . cp 17:58 Discharged to home ambulatory. kb3 17:58 Condition: stable 17:58 Discharge instructions given to patient, Instructed on discharge instructions, follow up and referral plans. medication usage, Demonstrated understanding of instructions, follow-up care, medications, Prescriptions given X 3. 17:59 Patient left the ED. kb3 Signatures: Cynthia Velazquez Audri, RN RN aa5 Nitin Linares PA PA cp Bradberry, Kelly, RN RN kb3
--- NOTE | 2021-11-07 17:40 | EDPHYS ---
Physician Documentation [facility] Name: Marcela Duenas Age: 26 yrs Sex: Female : 1995 Arrival Date: 11/07/2021 Time: 15:32 Bed 10 Private MD: ED Physician Bradley George HPI: 11/07 15:55 This 26 yrs old Female presents to ER via Unassigned with complaints of Fever. cp 15:55 The patient reports fever, that was measured at 102 degrees Fahrenheit. Onset: The cp symptoms/episode began/occurred this morning. Associated signs and symptoms: Pertinent positives: chills, cough, diarrhea, sore throat, vomiting, Pertinent negatives: abdominal pain. Severity of symptoms: in the emergency department the symptoms are unchanged. 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 - Social history:: Smoking status: Patient denies any tobacco usage or history of. ROS: 16:00 Constitutional: Positive for chills, fever, Negative for body aches, poor PO intake. cp 16:00 Eyes: Negative for injury, pain, redness, and discharge. cp 16:00 ENT: Positive for ear pain, sore throat, Negative for drainage from ear(s), difficulty swallowing, difficulty handling secretions. 16:00 Respiratory: Positive for cough, Negative for shortness of breath, wheezing. 16:00 Abdomen/GI: Positive for nausea, diarrhea, Negative for abdominal pain, vomiting, constipation. 16:00 Skin: Negative for rash. 16:00 Neuro: Negative for altered mental status, headache, weakness. 16:00 All other systems are negative. Exam: 16:05 Constitutional: The patient appears in no acute distress, alert, awake, non-toxic, well cp developed, well nourished, febrile. 16:05 Head/Face: Normocephalic, atraumatic. cp 16:05 Eyes: Periorbital structures: appear normal, Conjunctiva: normal, no exudate, no cp injection, Sclera: no appreciated abnormality, Lids and lashes: appear normal, bilaterally. 16:05 ENT: External ear(s): are unremarkable, Ear canal(s): are normal, clear, TM's: dullness, bilaterally, Nose: is normal, Mouth: Lips: moist, Oral mucosa: pink and intact, moist, Posterior pharynx: Airway: no evidence of obstruction, patent, Tonsils: bilaterally enlarged, with exudate, mild erythema, Uvula: midline, swelling, is not appreciated, erythema, that is mild. 16:05 Neck: ROM/movement: Meningeal signs: are not present, nuchal rigidity, is not appreciated, Lymph nodes: lymphadenopathy is appreciated, anterior cervical nodes. 16:05 Chest/axilla: Inspection: normal. 16:05 Cardiovascular: Rate: tachycardic, Rhythm: regular. cp 16:05 Respiratory: the patient does not display signs of respiratory distress, Respirations: normal, no use of accessory muscles, no retractions, labored breathing, is not present, Breath sounds: are clear throughout, no decreased breath sounds, no stridor, no wheezing. 16:05 Abdomen/GI: Inspection: abdomen appears normal, Palpation: abdomen is soft and non-tender, in all quadrants. 16:05 Back: pain, is absent, ROM is normal. 16:05 Skin: no rash present. Vital Signs: 15:59 BP 115 / 67; Pulse 115; Resp 22 S; Temp 103.1(O); Pulse Ox 97% on R/A; Weight 95.25 kg aa5 (R); Height 5 ft. 1 in. (154.94 cm) (R); 17:45 BP 117 / 78; Pulse 90; Resp 20; Temp 99.3; Pulse Ox 99% ; Pain 4/10; kb3 15:59 Body Mass Index 39.68 (95.25 kg, 154.94 cm) aa5 MDM: 16:01 Patient medically screened. cp 17:00 Differential diagnosis: viral Infection, bacterial infection, meningitis, strep throat, cp influenza, tonsillitis, COVID-19. 17:40 Data reviewed: vital signs, nurses notes, lab test result(s). cp 17:40 Counseling: I had a detailed discussion with the patient and/or guardian regarding: the cp historical points, exam findings, and any diagnostic results supporting the discharge/admit diagnosis, lab results, to return to the emergency department if symptoms worsen or persist or if there are any questions or concerns that arise at home. Response to treatment: the patient's symptoms have mildly improved after treatment, and as a result, I will discharge patient. 11/07 16:03 Order name: Strep; Complete Time: 16:56 cp 11/07 17:44 Interpretation: Reviewed. cp 11/07 16:03 Order name: Influenza Screen (a \\T\\ B); Complete Time: 16:56 cp 11/07 17:44 Interpretation: Reviewed. 11/07 16:03 Order name: COVID-19 SARS RT PCR (Document "Date of Onset" if Symptomatic); Complete cp Time: 17:39 11/07 17:39 Interpretation: Reviewed. 11/07 16:36 Order name: Throat Culture EDMS Administered Medications: 16:22 Drug: Acetaminophen 1000 mg Route: PO; kb3 17:00 Follow up: Response: No adverse reaction kb3 16:22 Drug: Zofran (Ondansetron) 4 mg Route: PO; kb3 17:00 Follow up: Response: No adverse reaction kb3 17:45 Drug: Ibuprofen 800 mg Route: PO; kb3 17:56 Follow up: Response: No adverse reaction kb3 17:45 Drug: Decadron (dexamethasone) 10 mg Route: IM; Site: left ventrogluteal; kb3 17:56 Follow up: Response: No adverse reaction kb3 17:55 Drug: Rocephin (cefTRIAXone) 1 grams Route: IM; Site: right ventrogluteal; kb3 17:56 Follow up: Response: No adverse reaction kb3 Disposition: 18:20 Co-signature as Attending Physician, Bradley George MD. rn Disposition Summary: 11/07/21 17:40 Discharge Ordered Location: Home cp Problem: new cp Symptoms: have improved cp Condition: Stable cp Diagnosis - Acute tonsillitis, unspecified cp Followup: cp - With: Private Physician - When: 1 - 2 days - Reason: Worsening of condition Discharge Instructions: - Discharge Summary Sheet cp - Tonsillitis cp - Form - Excuse from Work, School, or Physical Activity cp Forms: - Medication Reconciliation Form cp - Thank You Letter cp - Antibiotic Education cp - Prescription Opioid Use cp Prescriptions: - Lidocaine Viscous - take 5 milliliter by ORAL route every 4-6 hours; 1 bottle; Refills: 0, Product cp Selection Permitted - clarithromycin 500 mg Oral tablet - take 1 tablet by ORAL route every 12 hours for 10 days; 20 tablet; Refills: 0, cp Product Selection Permitted - Ibuprofen 800 mg Oral Tablet - take 1 tablet by ORAL route every 8 hours As needed take with food; 30 tablet; cp Refills: 0, Product Selection Permitted Signatures: Dispatcher [employer] EDBradley Lunsford MD MD rn Calderon, Audri, RN RN aa5 Nitin Linares PA PA Noelle Ibanez RN RN kb3 Corrections: (The following items were deleted from the chart) 16:51 16:00 Abdomen/GI: Positive for nausea, Negative for abdominal pain, vomiting, diarrhea, cp constipation, cp
[2021-11-07] MEDS ORDERED: dexAMETHasone 10 MG/ML VIAL ONE (17:44)
[2021-11-07] MEDS ORDERED: LIDOCAINE 1% MPF 2 ML AMPULE ONE (17:44)
[2021-11-07] MEDS ORDERED: IBUPROFEN 400 MG TAB ONE (17:44)
[2021-11-07] MEDS ORDERED: CEFTRIAXONE 1000 MG/VIAL ONE (17:44)
[2021-11-07 18:08] VITALS: BP 117/78; TEMP 99.3; O2SAT 99
== END 2021-11-07 17:59 | disposition home or self-care (01) ==
LOC: ER 15:30
DX: J03.90 Acute tonsillitis, unspecified (principal); Z20.822 Contact with and (suspected) exposure to COVID-19
CPT/HCPCS: 87070; 87081; 87804; 96372; 99283; J1100; Q0162; U0003

== ENCOUNTER 2022-08-22 09:28 | Emergency (ER) | payer SELFPAY ==
--- OUTSIDE RECORDS SUMMARY | 2022-08-22 09:32 | XMS REPORT | Continuity of Care Document ---
:1995 Author Organization [facility] t Address [address] [place] [address] Care Team Providers Name Role Phone PCP, NO Primary Care Physician Unavailable BRODY JOHNSON Attending Clinician Unavailable SELVIN MEJIA Attending Clinician Unavailable Problems This patient has no known problems. Allergies, Adverse Reactions, Alerts Allergy Allergy Status Severity Reaction(s) Onset Inactive Treating Comm ents Source Name Type Date Date Clinician [facility]EX [facility]UG Active Med Rash 2018-0 [facility] 04-02 ity of 00:00: [address] Medications This patient has no known medications. Procedures This patient has no known procedures. Encounters Start End Encounter Admission Attending Care Care Encounter Source Date/Time Date/Time Type Type Clinicians Facility Department ID 2021-01-31 2021-01-31 Emergency ER [facility]ING [facility]OHNSON [id number] [facility] 12:07:00 13:03:00 BRODY [id number] [facility] 2019-09-16 2019-09-16 Outpatient Ld MEJIA ORMIKE [facility] [id number] [facility] 17:40:00 17:40:00 SELVIN salazar [facility] Results This patient has no known results.
--- NOTE | 2022-08-22 10:36 | ER ---
Nurse's Notes [facility] Name: Marcela Duenas Age: 27 yrs Sex: Female : 1995 Arrival Date: 08/22/2022 Time: 09:28 Bed 12 Private MD: Diagnosis: Other acute conjunctivitis;Cough Presentation: 08/22 09:33 Chief complaint: Patient states: Dry cough, runny nose, and itching, redness and ph watering to L eye, symptoms started Sunday. Denies fever or chills. Coronavirus screen: Vaccine status: Patient reports receiving the 2nd dose of the covid vaccine. Ebola Screen: No symptoms or risks identified at this time. Initial Sepsis Screen: Does the patient meet any 2 criteria? No. Patient's initial sepsis screen is negative. Does the patient have a suspected source of infection? No. Patient's initial sepsis screen is negative. Risk Assessment: Do you want to hurt yourself or someone else? Patient reports no desire to harm self or others. Onset of symptoms was August 22, 2022. 09:33 Method Of Arrival: Ambulatory ph 09:33 Acuity: ZAFAR 4 ph Historical: - Allergies: 09:35 No Known Allergies; ph - PMHx: 09:35 None; ph - PSHx: 09:35 None; ph - Immunization history:: Adult Immunizations unknown. - Social history:: Smoking status: Patient denies any tobacco usage or history of. Screenin:47 [facility] ED Fall Risk Assessment (Adult) History of falling in the last 3 months, ph including since admission No falls in past 3 months (0 pts) Confusion or Disorientation No (0 pts) Intoxicated or Sedated No (0 pts) Impaired Gait No (0 pts) Mobility Assist Device Used No (0 pt) Altered Elimination No (0 pt) Score/Fall Risk Level 0 - 2 = Low Risk Oriented to surroundings, Maintained a safe environment. Abuse screen: Denies threats or abuse. Denies injuries from another. Nutritional screening: No deficits noted. Tuberculosis screening: No symptoms or risk factors identified. Assessment: 10:48 General: Appears in no apparent distress. Behavior is calm, cooperative, appropriate ph for age, Denies fever. Pain: Complains of pain in left eye. Neuro: Level of Consciousness is awake, alert, obeys commands, Oriented to person, place, time, situation. Cardiovascular: Capillary refill < 3 seconds in bilateral fingers. Respiratory: Reports cough that is dry, Airway is patent Respiratory effort is even, unlabored. GI: No signs and/or symptoms were reported involving the gastrointestinal system. EENT: Eyes are tearing on left eye Sclera/Cornea are reddened in left eye. Derm: Skin is intact, is healthy with good turgor, Skin is pink, warm \T\ dry. Vital Signs: 09:33 BP 113 / 79; Pulse 76; Resp 18; Temp 97.7; Pulse Ox 99% ; Weight 99.79 kg; Height 5 ft. ph 0 in. ; 09:33 Body Mass Index 42.97 (99.79 kg, 152.4 cm) ph ED Course: 09:30 Patient arrived in ED. rg4 09:32 Foreign Markham PA is PHCP. [facility] 09:32 Bradley George MD is Attending Physician. [facility] 09:35 Triage completed. ph 09:35 Arm band placed on Patient placed in an exam room. ph 10:08 Ana Rosa Roberts, RN is Primary Nurse. ko1 10:15 Patient has correct armband on for positive identification. Bed in low position. ph 10:47 No provider procedures requiring assistance completed. Patient did not have IV access ph during this emergency room visit. Administered Medications: No medications were administered Medication: 10:47 VIS not applicable for this client. ph Outcome: 10:36 Discharge ordered by MD. [facility] 10:47 Discharged to home ambulatory. ph 10:47 Condition: good 10:47 Discharge instructions given to patient, Instructed on discharge instructions, follow up and referral plans. medication usage, Demonstrated understanding of instructions, follow-up care, medications, Prescriptions given X 2. 10:48 Patient left the ED. ph Signatures: Foreign Markham PA PA jmm Hall, Patricia, RN RN Lissette Perdue rg4 Ana Rosa Roberts, ALFREDO RN ko1
--- NOTE | 2022-08-22 10:37 | EDPHYS ---
Physician Documentation [facility] Name: Marcela Duenas Age: 27 yrs Sex: Female : 1995 Arrival Date: 08/22/2022 Time: 09:28 Bed 12 Private MD: ED Physician Bradley George HPI: 08/22 09:37 This 27 yrs old Female presents to ER via Ambulatory with complaints of jmm Redness of Eye, Flu Symptoms. 09:37 Onset: The symptoms/episode began/occurred acutely, 2 day(s) ago. Aggravated by jmm nothing. Alleviated by nothing. This is a 27/f with no chronic medical conditions that presents to the ED with complaints of cough, congestion, left eye redness beginning 2 days ago. Denies vomiting, sore throat, sob, body aches. . Historical: - Allergies: 09:35 No Known Allergies; ph - PMHx: 09:35 None; ph - PSHx: 09:35 None; ph - Immunization history:: Adult Immunizations unknown. - Social history:: Smoking status: Patient denies any tobacco usage or history of. ROS: 09:37 Constitutional: Negative for fever, chills, and weight loss. jmm 09:37 Eyes: Positive for itching, redness. 09:37 ENT: Positive for sinus congestion. 09:37 Respiratory: Positive for cough. 09:37 All other systems are negative. Exam: 09:37 Constitutional: This is a well developed, well nourished patient who is awake, alert, jmm and in no acute distress. Head/Face: atraumatic. Eyes: EOMI, no conjunctival erythema appreciated ENT: Moist Mucus Membranes Neck: Trachea midline, Supple Chest/axilla: Normal chest wall appearance and motion. Cardiovascular: Regular rate and rhythm. No edema appreciated Respiratory: Normal respirations, no respiratory distress appreciated Abdomen/GI: Non distended 09:37 Skin: General appearance color normal MS/ Extremity: Moves all extremities, no obvious deformities appreciated, no edema noted to the lower extremities Neuro: Awake and alert Psych: Behavior is normal, Mood is normal, Patient is cooperative and pleasant 09:37 Eyes: Extraocular movements: intact throughout, Conjunctiva: injected, in the left eye. Vital Signs: 09:33 BP 113 / 79; Pulse 76; Resp 18; Temp 97.7; Pulse Ox 99% ; Weight 99.79 kg; Height 5 ft. ph 0 in. ; 09:33 Body Mass Index 42.97 (99.79 kg, 152.4 cm) ph MDM: 09:37 Patient medically screened. [facility] 11:42 Differential diagnosis: influenza, sars covid. Data reviewed: vital signs, nurses [facility] notes. Counseling: I had a detailed discussion with the patient and/or guardian regarding: the historical points, exam findings, and any diagnostic results supporting the discharge/admit diagnosis, lab results, the need for outpatient follow up, to return to the emergency department if symptoms worsen or persist or if there are any questions or concerns that arise at home. 08/22 09:41 Order name: SARS-COV-2 RT PCR; Complete Time: 10:35 [facility] 08/22 09:41 Order name: Influenza Screen (a \T\ B); Complete Time: 10:35 [facility] Administered Medications: No medications were administered Disposition: 13:00 Co-signature as Attending Physician, Bradley George MD I reviewed the patient's care rn provided by the Advanced Practice Provider and agree with the diagnosis and treatment plan. Disposition Summary: 08/22/22 10:36 Discharge Ordered Location: Home [facility] Condition: Stable [facility] Diagnosis - Other acute conjunctivitis [facility] - Cough [facility] Followup: [facility] - With: Private Physician - When: 2 - 3 days - Reason: Recheck today's complaints, Continuance of care, Re-evaluation by your physician Discharge Instructions: - Discharge Summary Sheet [facility] - Bacterial Conjunctivitis, Adult jm - Cough, Adult [facility] Forms: - Medication Reconciliation Form [facility] - Thank You Letter [facility] - Antibiotic Education [facility] - Prescription Opioid Use [facility] - Work release form Prescriptions: - cefdinir 300 mg Oral capsule - take 1 capsule by ORAL route 2 times per day for 10 days; 20 capsule; Refills: [facility] 0, Product Selection Permitted - Erythromycin 5 mg/gram (0.5 %) Ophthalmic Ointment - apply 1 ribbon by OPHTHALMIC route every 8 hours for 10 days; 1 unit; Refills: [facility] 0, Product Selection Permitted Signatures: Dispatcher [employer] Foreign Almeida PA PA jmm Nieto, Roman, MD MD rn Hall, Patricia, RN RN
[2022-08-22 11:03] VITALS: BP 113/79; TEMP 97.7; O2SAT 99
== END 2022-08-22 10:48 | disposition home or self-care (01) ==
LOC: ER 09:28
DX: H10.32 Unspecified acute conjunctivitis, left eye (principal); R05.9 Cough, unspecified; Z02.9 Encounter for administrative examinations, unspecified
CPT/HCPCS: 87635; 87804; 99283